=== PATIENT | male | born 2000 | race Two or more races ===

== ENCOUNTER 2023-08-30 00:25 | Emergency (ER) | payer MEDICAID ==
[~2023-08-30] VITALS: Ht 175.3 cm; Wt 100.0 kg
[2023-08-30 00:30] VITALS: TEMP 99; O2SAT 100
[2023-08-30] MEDS ORDERED: LIDOCAINE HCL/PF 1% 10 MG/ML 5ML VIAL INFIL ONE (04:45)
[2023-08-30] MEDS ORDERED: BACITRACIN ZINC OINT UDPKT TOP ONE (04:45)
[2023-08-30 05:43] VITALS: BP 122/82; PULSE 72; RESP 18
[2023-08-30] MEDS ORDERED: HYDROCODONE/ACETAMINOPHEN 5/325MG TABLET PO ONE (05:45)
[2023-08-30] MEDS ORDERED: TETANUS, DIPHTHERIA, PERTUSSIS VAC/PF 0.5ML (>10YR OLD) IM ONE (06:00)
== END 2023-08-30 06:24 | disposition home or self-care (01) ==
LOC: ER 00:25
DX: S91.312A Laceration without foreign body, left foot, initial encounter (principal); S00.01XA Abrasion of scalp, initial encounter; S00.81XA Abrasion of other part of head, initial encounter; J45.909 Unspecified asthma, uncomplicated; Y08.89XA Assault by other specified means, initial encounter; Y93.89 Activity, other specified; Y92.89 Other specified places as the place of occurrence of the external cause; Y99.8 Other external cause status
CPT/HCPCS: 73620; 90715; 12001; 90471; 99283; J3490; Z7610 ×2